=== PATIENT | female | born 1945 | race Caucasian/White ===

== ENCOUNTER 2017-07-10 00:58 | Day surgery (SDC) | payer MEDICARE ==
[~2017-07-10 00:58] MED LIST: ALEN70 PO; CALACE667G; CALCAVITD; ERGO400 PO; LETR2.5 PO; Multiple Vitam1 EAC1; Vitamin C100 M1 PO; Vitamin E100 UNIT
== END 2017-07-10 08:50 | disposition home or self-care (01) ==
LOC: ATC 00:58
DX: N39.3 Stress incontinence (female) (male) (principal)
CPT/HCPCS: 51798

== ENCOUNTER 2018-02-07 07:31 | Day surgery (SDC) | payer MEDICARE ==
[~2018-02-07] VITALS: Ht 165.1 cm; Wt 52.6 kg
== END 2018-02-07 09:53 | disposition home or self-care (01) ==
LOC: ORSCSDS 07:31
PROVIDERS: Internal Medicine Gastroenterology
PROC: 0DJD8ZZ Inspection of Lower Intestinal Tract, Via Natural or Artificial Opening Endoscopic (ICD-10-PCS; principal; 2018-02-07 08:45)
DX: Z12.11 Encounter for screening for malignant neoplasm of colon (principal); Z86.010 Personal history of colon polyps; K57.30 Diverticulosis of large intestine without perforation or abscess without bleeding; K64.8 Other hemorrhoids; Z87.891 Personal history of nicotine dependence; Z79.899 Other long term (current) drug therapy
CPT/HCPCS: J7120

== ENCOUNTER → 2018-02-24 | Outpatient (CLI) | payer MEDICARE | END | disposition home or self-care (01) | LOC: LAB SHORT 13:47 → PLD 13:47 | DX: D48.5 Neoplasm of uncertain behavior of skin (principal) | CPT/HCPCS: 88305 ==

== ENCOUNTER → 2019-11-04 | Outpatient (CLI) | payer MEDICARE | END | disposition home or self-care (01) | LOC: PLD 09:33 → LAB SHORT 09:33 | DX: D48.5 Neoplasm of uncertain behavior of skin (principal) | CPT/HCPCS: 88305 ==

== ENCOUNTER → 2020-11-09 | Outpatient (CLI) | payer MEDICARE | END | disposition home or self-care (01) | LOC: LAB SHORT 07:49 → LAB 07:49 | DX: C44.41 Basal cell carcinoma of skin of scalp and neck (principal) | CPT/HCPCS: 88305 ==

== ENCOUNTER 2021-03-03 06:04 | Day surgery (SDC) | payer OTHER ==
[~2021-03-03] VITALS: Ht 167.6 cm; Wt 54.5 kg
== END 2021-03-03 11:45 | disposition home or self-care (01) ==
LOC: ORSCMMR 06:04 → ORD 07:30 → ORSCMMR 11:45
PROVIDERS: Podiatrist Foot & Ankle Surgery
PROC: 0QSJ04Z Reposition Right Fibula with Internal Fixation Device, Open Approach (ICD-10-PCS; principal; 2021-03-03 07:30)
PROC: 0QSG04Z Reposition Right Tibia with Internal Fixation Device, Open Approach (ICD-10-PCS; principal; 2021-03-03 07:30)
DX: S82.841A Displaced bimalleolar fracture of right lower leg, initial encounter for closed fracture (principal); Z87.891 Personal history of nicotine dependence; W17.2XXS Fall into hole, sequela
CPT/HCPCS: A9270; C1713; J0171; J0690; J1100; J1885; J2270; J2405; J2704; J3010; J7120

== ENCOUNTER 2022-06-19 13:48 | Day surgery (SDC) | payer MEDICARE ==
[~2022-06-19] VITALS: Ht 167.6 cm; Wt 53.2 kg
--- NOTE | 2022-06-19 14:11 | NUR ---
06/19/22 1411 Ce Knox CALL LIGHT WITH REACH. TETRACAIN IN RIGHT EYE AT 1411 AND REGINA AT 1412
--- NOTE | 2022-06-19 15:31 | NUR ---
06/19/22 1531 Hetal Murphy TFAT30 17.5 LENS [id number] EXP:12/14/25
== END 2022-06-19 16:00 | disposition home or self-care (01) ==
LOC: ORSCSDS 13:48
PROVIDERS: Ophthalmology
PROC: 08RJ3JZ Replacement of Right Lens with Synthetic Substitute, Percutaneous Approach (ICD-10-PCS; principal; 2022-06-19 15:00)
DX: H25.11 Age-related nuclear cataract, right eye (principal); H52.201 Unspecified astigmatism, right eye; H52.4 Presbyopia
CPT/HCPCS: J2001; J2250; J3010; J3301; J7040; V2632

== ENCOUNTER 2022-06-21 12:15 | Day surgery (SDC) | payer MEDICARE ==
[~2022-06-21] VITALS: Ht 167.6 cm; Wt 53.3 kg
== END 2022-06-21 15:20 | disposition home or self-care (01) ==
LOC: ORSCSDS 12:15
PROVIDERS: Ophthalmology
PROC: 08RK3JZ Replacement of Left Lens with Synthetic Substitute, Percutaneous Approach (ICD-10-PCS; principal; 2022-06-21 13:30)
DX: H25.12 Age-related nuclear cataract, left eye (principal); H52.4 Presbyopia
CPT/HCPCS: J2001; J2250; J3010; J3301; J7040; V2632

== ENCOUNTER → 2023-05-15 | Outpatient (CLI) | payer MEDICARE ==
[~2023-05-15] MED LIST changes: +FLUDROCORTISON0.1 M1; +LATA.005SO
== END | disposition home or self-care (01) ==
LOC: PLD 12:18 → LAB SHORT 12:18 → LAB 12:18
DX: D48.5 Neoplasm of uncertain behavior of skin (principal)
CPT/HCPCS: 88305

== ENCOUNTER 2023-05-23 13:31 | Day surgery (SDC) | payer MEDICARE ==
[~2023-05-23] VITALS: Ht 165.1 cm; Wt 50.9 kg
[~2023-05-23 13:31] MED LIST changes: -FLUDROCORTISON0.1 M1; -LATA.005SO
[2023-05-23] MEDS ORDERED: FLUDROCORTISON0.1 M1 (13:55)
[2023-05-23] MEDS ORDERED: LATA.005SO (13:55)
[2023-05-23 15:38] VITALS: BP 96/70
== END 2023-05-23 15:52 | disposition home or self-care (01) ==
LOC: ORSCSDS 13:31
PROVIDERS: Internal Medicine Gastroenterology
PROC: 0DJD8ZZ Inspection of Lower Intestinal Tract, Via Natural or Artificial Opening Endoscopic (ICD-10-PCS; principal; 2023-05-23 14:45)
DX: Z12.11 Encounter for screening for malignant neoplasm of colon (principal); Z86.010 Personal history of colon polyps; K64.8 Other hemorrhoids; K57.30 Diverticulosis of large intestine without perforation or abscess without bleeding; Z87.891 Personal history of nicotine dependence; Z79.899 Other long term (current) drug therapy
CPT/HCPCS: J2704; J7120

== ENCOUNTER → 2023-12-24 | Outpatient (CLI) | payer MEDICARE ==
[~2023-12-24] MED LIST changes: +FLUDROCORTISON0.1 M1; +LATA.005SO
[2023-12-24 15:33] LABS: BASOPHILS ABSOLUTE AUTO 0.05 K/mm3 (0.00-0.23); BASOPHILS PERCENT AUTO 1 % (0-2); EOSINOPHILS PERCENT AUTO 2 % (0-6); Hematocrit 38.2 % (33.0-51.0); Hemoglobin 12.8 g/dL (11.5-16.0); IMMATURE GRAN ABSOLUTE AUTO 0.01 K/mm3 (0.00-0.10); IMMATURE GRAN PERCENT AUTO 0 % (0-1); LYMPHOCYTES ABSOLUTE AUTO 1.17 K/mm3 (0.84-5.20); LYMPHOCYTES PERCENT AUTO 23 % (21-46); MONOCYTES ABSOLUTE AUTO 0.65 K/mm3 (0.16-1.47); MONOCYTES PERCENT AUTO 13 % (4-13); Mean Corpuscular HGB 31.3 pg (26.0-34.0); Mean Corpuscular HGB Conc 33.5 g/dL (31.5-36.5); Mean Corpuscular Volume 93 fL (80-100); Mean Platelet Volume 9.5 fL (9.1-12.4); NEUTROPHILS ABSOLUTE AUTO 3.03 K/mm3 (1.96-9.15); NEUTROPHILS PERCENT AUTO 60 % (41-73); Platelet Count 230 K/mm3 (150-400); RDW Coefficient Variation 12.3 % (11.7-14.2); RDW Standard Deviation 42.4 fL (35.1-46.3); Red Blood Cell Count 4.09 M/mm3 (3.80-5.20); White Blood Cell Count 5.01 K/mm3 (4.00-11.30)
[2023-12-24 15:53] LABS: Albumin, Blood 3.4 g/dL (3.4-5.0); Bilirubin, Total 0.4 mg/dL (0.1-1.0); Bun/Creatinine Ratio 12.1 (12.0-20.0); Calcium, Blood 8.9 mg/dL (8.5-10.1); Creatinine, Blood 0.99 mg/dL (0.40-1.00); Globulin, Blood 3.4 g/dL (2.2-4.0); Magnesium, Blood 2.2 mg/dL (1.6-2.4); Thyroid Stimulating Hormone 3.925 uIU/mL (0.360-4.800); Total Protein, Blood 6.8 g/dL (6.4-8.2)
== END | disposition home or self-care (01) ==
LOC: LAB SHORT 15:28 → LAB 15:28
PROVIDERS: Chiropractor
DX: R06.02 Shortness of breath (principal)
CPT/HCPCS: 80053; 83735; 83880; 84443; 84484; 85025; 85379

== ENCOUNTER → 2025-04-20 | Outpatient (CLI) | payer MEDICARE ==
[2025-04-20 12:13] LABS: Bilirubin, Urine Neg (Neg); Glucose Qualitative, Urine Neg (Neg); Ketones, Urine Neg (Neg); Leukocyte Esterase, Urine Neg (Neg); Protein, Urine Neg (Neg); Specific Gravity, Urine 1.010 (1.003-1.022); Urobilinogen, Urine NORM (Normal)
[2025-04-20 12:16] LABS: Color, Urine Yellow (P-Yellow)
== END | disposition home or self-care (01) ==
LOC: LAB 10:00 → LAB SHORT 10:00
PROVIDERS: Physician Assistant
DX: M35.00 Sjogren syndrome, unspecified (principal); R80.0 Isolated proteinuria
CPT/HCPCS: 81003